=== PATIENT | female | born 1995 | race Caucasian/White ===

== ENCOUNTER → 2016-12-15 | Outpatient (CLI) | payer OTHER ==
[~2016-12-15] MED LIST: DEPO150I IM; NORC5TAB PO; SPIR25TA PO
[2016-12-15 08:51] LABS: AUTOMATED NEUTROPHIL # 3.7 TH/MM3 (1.8-7.7); BASOPHIL # 0.1 TH/MM3 (0-0.2); EOSINOPHIL # 0.1 TH/MM3 (0-0.4); EOSINOPHIL % 1.8 % (0.0-4.0); HEMATOCRIT 41.1 % (35.0-46.0); HEMO FLAGS DIFF FINAL; LYMPH % 34.4 % (9.0-44.0); LYMPHOCYTE # 2.3 TH/MM3 (1.0-4.8); MEAN CELL VOLUME 83.2 FL (80.0-100.0); MEAN CORPUSCULAR HEMOGLOBIN 26.7 PG (27.0-34.0); MEAN CORPUSCULAR HGB CONC 32.1 % (32.0-36.0); MONO % 8.1 % (0.0-8.0); NEUT % 54.7 % (16.0-70.0); PLATELET COUNT 335 TH/MM3 (150-450); RED BLOOD COUNT 4.94 MIL/MM3 (4.00-5.30); RED CELL DISTRIBUTION WIDTH 13.8 % (11.6-17.2); WHITE BLOOD COUNT 6.7 TH/MM3 (4.0-11.0)
[2016-12-15 09:21] LABS: ALKALINE PHOSPHATASE 72 U/L (45-117); ALT (GPT) 19 U/L (10-53); ANION GAP 8 MEQ/L (5-15); AST (GOT) 14 U/L (15-37); BICARBONATE 28.1 MEQ/L (21.0-32.0); BLOOD UREA NITROGEN 5 MG/DL (7-18); CHLORIDE 104 MEQ/L (98-107); GLOMERULAR FILTRATION RATE 72 ML/MIN (>89); GLUCOSE,FASTING 100 MG/DL (74-99); SODIUM (NA) 140 MEQ/L (136-145); TOTAL BILIRUBIN ADULT 0.7 MG/DL (0.2-1.0)
== END ==
LOC: OLAB 07:36
PROVIDERS: ATTEND Family Medicine
DX: L70.9 Acne, unspecified (principal); N94.6 Dysmenorrhea, unspecified; Z30.011 Encounter for initial prescription of contraceptive pills; Z30.9 Encounter for contraceptive management, unspecified
CPT/HCPCS: 80053; 85025

== ENCOUNTER → 2017-02-02 | Day surgery (SDC) | payer OTHER ==
[~2017-02-02] VITALS: Ht 168.9 cm; Wt 49.3 kg
[~2017-02-02] MED LIST changes: +BUPIVACAINE HCL PF 0.5% 30 ML VIAL ONE; +CIPROFLOXACIN 400 MG PREMIX 200 ML ONE; +FAMOTIDINE 20 MG/2 ML VIAL ONE; +LACTATED RINGER'S 1000 ML INJ 1,000 ML ONE; +LIDOCAINE HCL 2% 50 ML VIAL ONE; +MIDAZOLAM HCL 2 MG/2 ML VIAL ONE; +NEOMYCIN/POLYMYXIN 1 ML G.U. IRRIGANT IR ONE; +ONDANSETRON HCL 4 MG/2 ML VIAL IV PUSH ONE; +PROPOFOL 200 MG/20 ML AMP IV ONE; +SODIUM CHLORIDE 0.9% INJ 50 ML ONE; +ceFAZolin INJ 1,000 MG VIAL ONE; +fentaNYL CITRATE 250 MCG/5 ML AMP ONE
[2017-02-02 08:15] VITALS: BP 126/89; PULSE 101; RESP 20; TEMP 98.6; O2SAT 100
[2017-02-02 08:39] LABS: HEMATOCRIT 40.5 % (35.0-46.0); MEAN CELL VOLUME 83.7 FL (80.0-100.0); MEAN CORPUSCULAR HEMOGLOBIN 28.4 PG (27.0-34.0); PLATELET COUNT 304 TH/MM3 (150-450); RED BLOOD COUNT 4.84 MIL/MM3 (4.00-5.30); RED CELL DISTRIBUTION WIDTH 13.5 % (11.6-17.2); WHITE BLOOD COUNT 7.2 TH/MM3 (4.0-11.0)
[2017-02-02 08:45] LABS: REVIEW FLAG FINAL
[2017-02-02 10:28] VITALS: TEMP 97.7
[2017-02-02 11:35] VITALS: BP 102/67; PULSE 73; RESP 14; O2SAT 100
--- NOTE | 2017-02-03 11:19 | MP ---
cc: JJ DARBY III, M.D. DATE OF SURGERY 02/02/2017 PREOPERATIVE DIAGNOSIS Right volar wrist mass. PROCEDURE Right volar wrist mass excisional biopsy. POSTOPERATIVE DIAGNOSIS Right volar wrist mass. PROCEDURE The patient was brought to the operating room, placed supine on the operating table. After the correct site and side of surgery were verified by members of each team room multiple times including the patient and myself and after preoperative markings and preoperative written consents were verified by everyone and after adequate preop time-out was performed to everyone's satisfaction and after adequate IV sedation had been achieved, the right upper extremity was prepped and draped in the traditional sterile surgical fashion. A 50/50 mixture of 2% plain lidocaine, 0.5% plain Marcaine was infiltrated into the skin and subcutaneous tissue overlying the site of the mass. The limb was exsanguinated with an Manny wrap and a highly placed well-padded axillary tourniquet was inflated to 200 mmHg for approximately 17 minutes. A transverse oriented incision within the wrist flexion crease was made just distal to the mass, carried down through skin and subcutaneous tissue. Blunt dissection was performed. Dissection revealed no evidence of any ganglion cyst, but a very prominent fatty mass. This was excised in its entirety, cauterized at its stalk and passed off the field as a specimen. There were no other anatomic abnormalities identified as exploration continued. The radial artery was never encountered nor was the flexor carpi radialis tendon. Thorough irrigation was performed. The skin edges were reapproximated using running 4-0 Monocryl suture. Mastisol and Steri-Strips were applied. The hand and arm were thoroughly cleansed and dried. A bulky soft dressing was applied. The axillary tourniquet was released and the hand and all the fingers became immediately soft, pink and warm and had brisk capillary refill of less than two seconds. The patient was awakened from anesthesia and transported to the Post Anesthesia Care Unit awake and in stable condition. Sponges, needle and instrument counts were correct at the end of the case as reported by nurses in the room. MD ALVA Corey III/SUSNAA /10:32 AM /11:07 AM
== END | disposition home or self-care (01) ==
LOC: PHSDC 07:36
PROVIDERS: ATTEND Orthopaedic Surgery Hand Surgery
DX: D23.61 Other benign neoplasm of skin of right upper limb, including shoulder (principal)
CPT/HCPCS: 00400; 25065; 36415; 85027; 88305; J0744; J2250; J2405; J3010; J7120; J0690

== ENCOUNTER → 2018-03-28 | Outpatient (CLI) | payer OTHER ==
[~2018-03-28] MED LIST changes: -BUPIVACAINE HCL PF 0.5% 30 ML VIAL ONE; -CIPROFLOXACIN 400 MG PREMIX 200 ML ONE; -FAMOTIDINE 20 MG/2 ML VIAL ONE; -LACTATED RINGER'S 1000 ML INJ 1,000 ML ONE; -LIDOCAINE HCL 2% 50 ML VIAL ONE; -MIDAZOLAM HCL 2 MG/2 ML VIAL ONE; -NEOMYCIN/POLYMYXIN 1 ML G.U. IRRIGANT IR ONE; -NORC5TAB PO; -ONDANSETRON HCL 4 MG/2 ML VIAL IV PUSH ONE; -PROPOFOL 200 MG/20 ML AMP IV ONE; -SODIUM CHLORIDE 0.9% INJ 50 ML ONE; -ceFAZolin INJ 1,000 MG VIAL ONE; -fentaNYL CITRATE 250 MCG/5 ML AMP ONE
[2018-03-28 11:26] LABS: AUTOMATED NEUTROPHIL # 3.7 TH/MM3 (1.8-7.7); BASOPHIL # 0.1 TH/MM3 (0-0.2); BASOPHIL % 1.1 % (0.0-2.0); EOSINOPHIL # 0.1 TH/MM3 (0-0.4); EOSINOPHIL % 1.6 % (0.0-4.0); HEMATOCRIT 40.6 % (35.0-46.0); HEMOGLOBIN 13.9 GM/DL (11.6-15.3); LYMPH % 35.3 % (9.0-44.0); LYMPHOCYTE # 2.5 TH/MM3 (1.0-4.8); MEAN CORPUSCULAR HEMOGLOBIN 29.7 PG (27.0-34.0); MEAN CORPUSCULAR HGB CONC 34.1 % (32.0-36.0); MEAN PLATELET VOLUME 8.9 FL (7.0-11.0); MONO % 9.9 % (0.0-8.0); MONOCYTE # 0.7 TH/MM3 (0-0.9); NEUT % 52.1 % (16.0-70.0); PLATELET COUNT 229 TH/MM3 (150-450); RED BLOOD COUNT 4.67 MIL/MM3 (4.00-5.30); RED CELL DISTRIBUTION WIDTH 13.2 % (11.6-17.2); WHITE BLOOD COUNT 7.2 TH/MM3 (4.0-11.0)
[2018-03-28 11:51] LABS: BICARBONATE 26.1 MEQ/L (21.0-32.0); CALCIUM 9.1 MG/DL (8.5-10.1); CREATININE 0.77 MG/DL (0.50-1.00)
== END ==
LOC: CLAB 10:44
PROVIDERS: ATTEND Physician Assistant Medical
DX: L70.0 Acne vulgaris (principal)
CPT/HCPCS: 36415; 80048; 85025